=== PATIENT | male | born 1980 | race Caucasian/White ===

== ENCOUNTER 2020-11-29 10:40 | Outpatient (CLI) | payer OTHER, SELFPAY ==
[2020-11-29 20:32] LABS: SARS-CoV-2 RNA PCR Positive
== END 2020-11-29 10:41 | disposition home or self-care (01) ==
LOC: ANHCOVIDDT 10:42
PROVIDERS: PCP Family Medicine; Visit Provider Nurse Practitioner Family
DX: U07.1 COVID-19 (principal); R09.81 Nasal congestion
CPT/HCPCS: C9803; U0003; U0005

== ENCOUNTER → 2021-11-08 02:31 | Outpatient (CLI) | payer BC, SELFPAY ==
[2021-11-08 20:41] LABS: SARS-CoV-2 RNA PCR Negative
== END ==
PROVIDERS: PCP Family Medicine; Visit Provider Nurse Practitioner Family
DX: R68.89 Other general symptoms and signs (principal); Z20.822 Contact with and (suspected) exposure to COVID-19
CPT/HCPCS: C9803; U0003; U0005